=== PATIENT | male | born 1955 | race Caucasian/White ===

== ENCOUNTER 2016-12-08 18:21 | Emergency (ER) | payer MEDICAID ==
[~2016-12-08] VITALS: Ht 165.1 cm; Wt 50.0 kg
[~2016-12-08 18:21] MED LIST: EPINEPHrine HCL (1:10,000) 1 MG/10 ML SYRINGE IV ONE; SODIUM BICARBONATE 8.4% INJ 50 MEQ/50 ML SYR IV ONE
[2016-12-08 18:25] VITALS: PULSE 124; RESP 18
[2016-12-08] MEDS ORDERED: NOREPINEPHRINE 4 MG/4 ML AMP ONE (18:31)
[2016-12-08] MEDS ORDERED: PROPOFOL 1000 MG/100 ML INJ 100 ML ONE (18:31)
[2016-12-08] MEDS ORDERED: NOREPINEPHRINE-DEXTROSE DRIP 250 ML IV SCH (18:45)
[2016-12-08] MEDS ORDERED: EPINEPHrine HCL (1:10,000) 1 MG/10 ML SYRINGE IV ONE (18:45)
[2016-12-08] MEDS ORDERED: EPINEPHrine HCL (1:10,000) 1 MG/10 ML SYRINGE IV PRN (18:45)
[2016-12-08] MEDS ORDERED: SODIUM BICARBONATE 8.4% INJ 50 MEQ/50 ML SYR IV PUSH ONE (18:45)
[2016-12-08] MEDS ORDERED: TERBUTALINE INJ 1 MG/ML AMP SQ PRN (18:45)
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
[2016-12-08] MEDS ORDERED: EPINEPHrine (1:1000) INJ 2 MG in DEXTROSE 5% IN WATER INJ 248 ML IV SCH ×2 (20:45)
--- NOTE | 2016-12-09 15:19 | EKG ---
Date Performed: 12/08/2016 Time Performed: 18:34:07 PTAGE: 61 years EKG: Rhythm appears to be a ventricular flutter or a dying heart Rhythm. No QRS complexes are se en. When compared to previous tracing, this ventricular flutter/dying Heart rhythm is new. ABNORMAL E CG PREVIOUS TRACING : 01/23/2016 15.09.04 DOCTOR: Juan Macias Interpretating Date/Time 12/09/2016 15:19:12
== END 2016-12-08 20:50 | disposition expired ==
LOC: NEPE 18:21 → NEPI 20:50
DX: I46.9 Cardiac arrest, cause unspecified (principal); R94.31 Abnormal electrocardiogram [ECG] [EKG]; I25.10 Atherosclerotic heart disease of native coronary artery without angina pectoris; E78.00 Pure hypercholesterolemia, unspecified; I10 Essential (primary) hypertension; I25.2 Old myocardial infarction; F17.210 Nicotine dependence, cigarettes, uncomplicated; Z86.73 Personal history of transient ischemic attack (TIA), and cerebral infarction without residual deficits; Z95.1 Presence of aortocoronary bypass graft
CPT/HCPCS: 92950; 93005; 99285; J0171